=== PATIENT | female | born 1955 | race Caucasian/White ===

== ENCOUNTER → 2017-06-12 | Outpatient (CLI) | payer OTHER ==
[~2017-06-12] MED LIST: FLUOXETINE20 MG PO; GLUCOTROL10 MG PO; METFORMIN1000 MG PO; MULTI-VITAMIN1 EACH PO; SIMVASTATIN40 MG PO; TRAZODONE 50MG50 MG PO; VITAMIN D31000 IU PO
--- NOTE | 2017-06-16 11:28 | RADIOLOGY REPORT PS360 ---
MRI-BRAIN W/WO Ordering Physician: Marcos Mitchell MD Patient Age: 61 years: Female HISTORY: ATAXIAataxia dizziness spells at times on off balance. TECHNIQUE: : Precontrast Multiplanar FLAIR, T1, T2 weighted images along with axial diffusion/ADC imaging performed on 1.5 T. Siemens, MRI. Postcontrast imaging [id number] ProHance T1-weighted images axial & coronal plane performed FINDINGS No lesions evident. No deep white matter lesions on sensitive FLAIR image. No mass lesion. There is a minor anatomical variant of a cavum septum pellucidum and vergae.. Typically not considered of significance but can be associated with some conditions.Otherwise unremarkable, normal anatomy. Normal cranial cervical junction. Sella and basal cisterns normal. The rico and white matter patterns appear satisfactory. Diffusion images show no recent or acute infarct. . No abnormal areas of enhancement post contrast With history of dizziness particular attention is directed towards the posterior fossa . IACs appear symmetric. Cranial nerve VII and VIII appear normal with normal caliber,. Normal course & no enhancement. The dural venous sinuses unremarkable Mastoid air cells appear satisfactory with no significant inflammation. Middle air-no fluid. Paranasal sinuses clear. Orbits unremarkable. Deviation nasal septum convexity to the right incidentally noted. IMPRESSION: . No lesions evident. No abnormal enhancement Normal MRI brain only noting minor anatomical variation of Cavum Septum Pellucidum & Vergae Regarding dizziness: posterior fossa appears normal. Cranial nerve VII and VIII appear normal with no enhancement.. IACs symmetric. No significant findings at mastoid air cells, nor middle air.
== END ==
LOC: RAD 09:30
DX: R27.0 Ataxia, unspecified (principal)
CPT/HCPCS: A9576